=== PATIENT | male | born 1965 | race Caucasian/White ===

== ENCOUNTER → 2016-11-10 | Outpatient (CLI) | payer OTHER | LOC: KOH-I 11-01 15:00 | DX: C34.11 Malignant neoplasm of upper lobe, right bronchus or lung (principal); R91.8 Other nonspecific abnormal finding of lung field | CPT/HCPCS: 71260; Q9962 ==

== ENCOUNTER → 2017-01-24 | Outpatient (CLI) | payer OTHER | LOC: KOH-I 16:31 | DX: R07.89 Other chest pain (principal); Z98.890 Other specified postprocedural states | CPT/HCPCS: 71020 ==

== ENCOUNTER → 2017-05-14 | Outpatient (CLI) | payer OTHER | LOC: CT 13:30 | DX: C34.11 Malignant neoplasm of upper lobe, right bronchus or lung (principal); R91.1 Solitary pulmonary nodule; Z98.890 Other specified postprocedural states | CPT/HCPCS: 71260; J7050; Q9962 ==

== ENCOUNTER → 2020-09-15 | Outpatient (CLI) | payer OTHER ==
[~2020-09-15] MED LIST: ACYCLOVIR400 MG PO; ALBUTEROL1.25 MG/3 INH; AMBIEN10 MG PO; AMIODARONE DRIP; AMIODARONE HCL200 MG PO; ANORO ELLIPTA1 EACH INH; CEFEPIME; CLARITIN10 MG PO; CODEINE SULFATE30 M1 PO; COLACE 100MG C100 MG PO; COLCRYS0.6 MG PO; COMPAZINE10 MG PO; DEXAMETHASONE6 MG PO; DICLOFENAC GEL 1% TOP; ECOTRIN81 MG PO; FIORICET TAB1 EA PO; FLOMAX0.4 MG PO; IBU800 MG PO; IV FLUIDS; K-DUR TAB 20 M20 MEQ PO; KEPPRA 500 MG500 MG PO; KEPPRA500 MG PO; LAC-HYDRIN FIV226 GM TP; LEVAQUIN500 MG PO; LEVOPHED; LIPITOR40 MG PO; LOPRESSOR 25 MG25 MG PO; LORATADINE10 MG PO; MAGIC MOUTHWASH PO; MAGOX 400400 MG PO; MIRALAX17 GM PO; NEURONTIN 400400 MG PO; NEURONTIN800 MG PO; OMNICEF 300 MG300 MG PO; OXYCODONE HCL10 MG PO; OXYCONTIN10 MG PO; PEPCID20 MG PO; PERCOCET 5-3251 EACH PO; PHENERGAN 25 MG25 M1 PO; PREDNISONE1 MG PO; PREDNISONE10 MG PO; PROTONIX40 MG PO; VALIUM 5 MG TAB5 MG PO; VANCOMYCIN; VOLTAREN100 GM TP; ZOFRAN 8 MG TAB8 MG PO; ZOLOFT100 MG PO; ZOLOFT25 MG PO; ZOVIRAX 200 MG200 MG PO
== END ==
LOC: HEART 5 08:30
DX: R00.1 Bradycardia, unspecified (principal); R55 Syncope and collapse; R06.02 Shortness of breath; R93.1 Abnormal findings on diagnostic imaging of heart and coronary circulation; I11.9 Hypertensive heart disease without heart failure; I34.8 Other nonrheumatic mitral valve disorders; R94.39 Abnormal result of other cardiovascular function study
CPT/HCPCS: 78452; 93306; A9502; J2785

== ENCOUNTER → 2020-11-05 | Outpatient (CLI) | payer OTHER | LOC: CT 12:14 | DX: C34.90 Malignant neoplasm of unspecified part of unspecified bronchus or lung (principal); Z98.890 Other specified postprocedural states | CPT/HCPCS: 71260; Q9965 ==

== ENCOUNTER → 2020-12-06 | Outpatient (CLI) | payer OTHER | LOC: KOH-I 14:15 | DX: I99.9 Unspecified disorder of circulatory system (principal) | CPT/HCPCS: 93925 ==

== ENCOUNTER 2021-04-08 15:14 | Emergency (ER) | payer OTHER ==
[~2021-04-08 15:14] MED LIST changes: -COLACE 100MG C100 MG PO; -COLCRYS0.6 MG PO; -ECOTRIN81 MG PO; -IBU800 MG PO; -LORATADINE10 MG PO; -NEURONTIN800 MG PO; -OXYCODONE HCL10 MG PO; -PREDNISONE1 MG PO; -ZOLOFT100 MG PO
[2021-04-08 16:46] LABS: HEMOGLOBIN 13.6 gm/dl (14.0-17.5); RED BLOOD COUNT 4.68 M/UL (4.20-5.50); WHITE BLOOD COUNT 10.9 K/UL (4.5-11.0)
[2021-04-08 17:17] LABS: BUN/CREATININE RATIO 9 (0-10)
[2021-04-08] MEDS ORDERED: PERCOCET 5/325 T1 EA PO (19:20)
[2021-04-09] MEDS ORDERED: MOVANTIK25 MG PO (14:24)
[2021-04-09] MEDS ORDERED: STIOLTO RESPIMAT4 GM INH (14:26)
[2021-04-09] MEDS ORDERED: KENALOG CREAM 015 GM TOP (14:27)
[2021-04-09] MEDS ORDERED: NEURONTIN800 MG PO (14:39)
[2021-04-09] MEDS ORDERED: OXYCODONE HCL10 MG PO (14:42)
[2021-04-09] MEDS ORDERED: ZOLOFT100 MG PO (14:44)
[2021-04-09] MEDS ORDERED: IBU800 MG PO (14:47)
[2021-04-09] MEDS ORDERED: LORATADINE10 MG PO (14:48)
[2021-04-09] MEDS ORDERED: KEPPRA 500 MG500 MG PO (14:48)
[2021-04-09] MEDS ORDERED: PREDNISONE1 MG PO (14:51)
[2021-04-09] MEDS ORDERED: COLCRYS0.6 MG PO (14:52)
[2021-04-09] MEDS ORDERED: COLACE 100MG C100 MG PO (18:39)
[2021-04-09] MEDS ORDERED: ECOTRIN81 MG PO (22:47)
== END 2021-04-08 19:30 | disposition home or self-care (01) ==
LOC: ER1 15:14
PROVIDERS: Emergency Medicine
DX: Z53.8 Procedure and treatment not carried out for other reasons (principal)
CPT/HCPCS: 70450; 71111; 80053; 82550; 82553; 83874; 84484; 85025; 96374; 96375; 99284; J2270; J2405; Q9967

== ENCOUNTER 2021-04-09 09:37 | Inpatient (IN) | payer OTHER ==
[~2021-04-09] VITALS: Ht 188 cm; Wt 92.6 kg
[~2021-04-09 09:37] MED LIST changes: +PERCOCET 5/325 T1 EA PO
[2021-04-09 10:39] LABS: RED BLOOD COUNT 4.16 M/UL (4.20-5.50); WHITE BLOOD COUNT 4.8 K/UL (4.5-11.0)
[2021-04-09] MEDS ORDERED: MOVANTIK25 MG PO (14:24)
[2021-04-09] MEDS ORDERED: STIOLTO RESPIMAT4 GM INH (14:26)
[2021-04-09] MEDS ORDERED: KENALOG CREAM 015 GM TOP (14:27)
[2021-04-09] MEDS ORDERED: NEURONTIN800 MG PO (14:39)
[2021-04-09] MEDS ORDERED: OXYCODONE HCL10 MG PO (14:42)
[2021-04-09] MEDS ORDERED: ZOLOFT100 MG PO (14:44)
[2021-04-09] MEDS ORDERED: IBU800 MG PO (14:47)
[2021-04-09] MEDS ORDERED: KEPPRA 500 MG500 MG PO (14:48)
[2021-04-09] MEDS ORDERED: LORATADINE10 MG PO (14:48)
[2021-04-09] MEDS ORDERED: PREDNISONE1 MG PO (14:51)
[2021-04-09] MEDS ORDERED: COLCRYS0.6 MG PO (14:52)
[2021-04-09] MEDS ORDERED: COLACE 100MG C100 MG PO (18:39)
[2021-04-09 19:35] LABS: HEMOGLOBIN 10.3 gm/dl (14.0-17.5)
[2021-04-09 19:36] LABS: RED BLOOD COUNT 3.56 M/UL (4.20-5.50); WHITE BLOOD COUNT 12.5 K/UL (4.5-11.0)
[2021-04-09] MEDS ORDERED: ECOTRIN81 MG PO (22:47)
[2021-04-10 06:02] LABS: HEMOGLOBIN 12.1 gm/dl (14.0-17.5); RED BLOOD COUNT 4.15 M/UL (4.20-5.50); WHITE BLOOD COUNT 22.4 K/UL (4.5-11.0)
[2021-04-11 05:25] LABS: HEMOGLOBIN 11.2 gm/dl (14.0-17.5); RED BLOOD COUNT 3.89 M/UL (4.20-5.50)
[2021-04-11 05:28] LABS: WHITE BLOOD COUNT 15.7 K/UL (4.5-11.0)
[2021-04-11 05:51] LABS: BUN/CREATININE RATIO 17 (0-10)
[2021-04-12 07:30] LABS: HEMOGLOBIN 10.1 gm/dl (14.0-17.5); RED BLOOD COUNT 3.35 M/UL (4.20-5.50); WHITE BLOOD COUNT 8.7 K/UL (4.5-11.0)
[2021-04-12 07:51] LABS: BUN/CREATININE RATIO 24 (0-10)
[2021-04-13 04:42] LABS: HEMOGLOBIN 9.2 gm/dl (14.0-17.5); RED BLOOD COUNT 3.2 M/UL (4.20-5.50); WHITE BLOOD COUNT 6.6 K/UL (4.5-11.0)
[2021-04-13 05:04] LABS: BUN/CREATININE RATIO 27 (0-10)
[2021-04-14 02:54] LABS: HEMOGLOBIN 9.6 gm/dl (14.0-17.5); RED BLOOD COUNT 3.31 M/UL (4.20-5.50)
[2021-04-14 02:55] LABS: WHITE BLOOD COUNT 4.6 K/UL (4.5-11.0)
[2021-04-14 03:23] LABS: BUN/CREATININE RATIO 40 (0-10)
[2021-04-15 05:38] LABS: RED BLOOD COUNT 3.37 M/UL (4.20-5.50); WHITE BLOOD COUNT 4.6 K/UL (4.5-11.0)
[2021-04-15 06:26] LABS: BUN/CREATININE RATIO 43 (0-10)
[2021-04-16 01:23] LABS: HEMOGLOBIN 10.4 gm/dl (14.0-17.5); RED BLOOD COUNT 3.47 M/UL (4.20-5.50)
[2021-04-16 01:24] LABS: WHITE BLOOD COUNT 6.3 K/UL (4.5-11.0)
[2021-04-16 02:08] LABS: BUN/CREATININE RATIO 44 (0-10)
[2021-04-17 05:08] LABS: HEMOGLOBIN 11.2 gm/dl (14.0-17.5); RED BLOOD COUNT 3.69 M/UL (4.20-5.50); WHITE BLOOD COUNT 6.6 K/UL (4.5-11.0)
[2021-04-17 05:48] LABS: BUN/CREATININE RATIO 34 (0-10)
[2021-04-18 06:10] LABS: HEMOGLOBIN 11.2 gm/dl (14.0-17.5); RED BLOOD COUNT 3.79 M/UL (4.20-5.50); WHITE BLOOD COUNT 7.9 K/UL (4.5-11.0)
[2021-04-18 06:39] LABS: BUN/CREATININE RATIO 27 (0-10)
== END 2021-04-18 18:29 | disposition expired | DRG 870 ==
LOC: ER1 09:37 → CDU 15:42 → CCU 15:42
PROVIDERS: Emergency Medicine; Family Medicine; Internal Medicine; Internal Medicine Pulmonary Disease; ADMIT Internal Medicine
PROC: 5A1955Z Respiratory Ventilation, Greater than 96 Consecutive Hours (ICD-10-PCS; principal; 2021-04-09)
PROC: 0BH17EZ Insertion of Endotracheal Airway into Trachea, Via Natural or Artificial Opening (ICD-10-PCS; 2021-04-09)
PROC: 3E033XZ Introduction of Vasopressor into Peripheral Vein, Percutaneous Approach (ICD-10-PCS; 2021-04-09)
PROC: B24BZZ4 Ultrasonography of Heart with Aorta, Transesophageal (ICD-10-PCS; 2021-04-12)
PROC: 02HV33Z Insertion of Infusion Device into Superior Vena Cava, Percutaneous Approach (ICD-10-PCS; 2021-04-14)
PROC: B548ZZA Ultrasonography of Superior Vena Cava, Guidance (ICD-10-PCS; 2021-04-14)
DX: A41.89 Other specified sepsis (principal); J69.0 Pneumonitis due to inhalation of food and vomit; I21.4 Non-ST elevation (NSTEMI) myocardial infarction; J15.0 Pneumonia due to Klebsiella pneumoniae; G93.41 Metabolic encephalopathy; J96.21 Acute and chronic respiratory failure with hypoxia; J96.22 Acute and chronic respiratory failure with hypercapnia; C34.90 Malignant neoplasm of unspecified part of unspecified bronchus or lung; N17.9 Acute kidney failure, unspecified; C79.31 Secondary malignant neoplasm of brain; E87.2 Acidosis; I42.9 Cardiomyopathy, unspecified; Z66 Do not resuscitate; E87.6 Hypokalemia; F10.10 Alcohol abuse, uncomplicated; J30.9 Allergic rhinitis, unspecified; F41.9 Anxiety disorder, unspecified; M19.90 Unspecified osteoarthritis, unspecified site; I12.9 Hypertensive chronic kidney disease with stage 1 through stage 4 chronic kidney disease, or unspecified chronic kidney disease; N18.30 Chronic kidney disease, stage 3 unspecified; M10.9 Gout, unspecified; R65.20 Severe sepsis without septic shock; G40.909 Epilepsy, unspecified, not intractable, without status epilepticus; I48.0 Paroxysmal atrial fibrillation; I45.81 Long QT syndrome; K21.9 Gastro-esophageal reflux disease without esophagitis; I48.91 Unspecified atrial fibrillation; I08.1 Rheumatic disorders of both mitral and tricuspid valves; J44.9 Chronic obstructive pulmonary disease, unspecified; F17.210 Nicotine dependence, cigarettes, uncomplicated; G47.00 Insomnia, unspecified; D69.6 Thrombocytopenia, unspecified; E83.42 Hypomagnesemia; D75.1 Secondary polycythemia; Z86.69 Personal history of other diseases of the nervous system and sense organs; Z87.39 Personal history of other diseases of the musculoskeletal system and connective tissue; Z82.61 Family history of arthritis; Z83.42 Family history of familial hypercholesterolemia; Z81.8 Family history of other mental and behavioral disorders; Z79.01 Long term (current) use of anticoagulants; Z79.82 Long term (current) use of aspirin
CPT/HCPCS: ECHO; 31500; 36415; 36600; 51702; 70450; 71045; 71111; 73502; 80053; 80162; 80202; 81001; 82550; 82553; 82803; 82962; 83540; 83550; 83605; 83690; 83735; 83874; 83880; 84100; 84132; 84439; 84443; 84484; 85025; 85027; 85379; 85610; 85652; 85730; 86140; 87040; 87070; 87077; 87081; 87086; 87186; 87205; 93005; 93306; 94002; 94003; 94640; 94664; 94760; 96374; 96375; 99284; 99285; C1751; C9113; J0692; J1160; J1205; J1335; J1644; J1650; J1720; J1940; J1953; J2060; J2250; J2270; J2370; J2405; J2543; J2704; J3370; J3475; J3480; J7030; J7050; J7070; P9047; Q9967; U0002